=== PATIENT | female | born 1960 | race Caucasian/White ===

== ENCOUNTER 2017-07-30 15:30 | Inpatient (IN) | payer BC, MEDICAID ==
[~2017-07-30] VITALS: Ht 157.5 cm; Wt 79.8 kg
[2017-07-30 15:40] VITALS: BP 132/69
[2017-07-30] MEDS ORDERED: DOCUSATE SODIUM 283 MG/5 ML MINI-ENEMA PR PRN (15:45)
[2017-07-30] MEDS ORDERED: ALBUTEROL SULFATE 2.5 MG/0.5 ML NEB SOLUTION NEB PRN (16:00)
[2017-07-30] MEDS ORDERED: DiphenhydrAMINE HCL 25 MG CAPSULE PO PRN (16:00)
[2017-07-30] MEDS ORDERED: IPRATROPIUM BROMIDE 0.5 MG/2.5 ML NEB SOLUTION NEB PRN (16:00)
[2017-07-30] MEDS ORDERED: AQUAPHOR OINTMENT 50 GM TUBE TP PRN (16:00)
[2017-07-30] MEDS ORDERED: DiphenhydrAMINE HCL 25 MG/10 ML ELIXIR UDCUP PO PRN (17:05)
[2017-07-30] MEDS: HYDROCODONE/ACETAMINOPHEN 5-325 MG TABLET PO PRN (17:10)
[2017-07-30] MEDS: BUTALBITAL/ACETAMINOPHEN/CAFFEINE 50-325-40 MG TABLET PO PRN (18:57)
[2017-07-30] MEDS: DOCUSATE SODIUM 100 MG CAPSULE PO SCH (20:06)
[2017-07-30] MEDS: FAMOTIDINE 20 MG TABLET PO SCH (20:06)
[2017-07-30] MEDS: ATORVASTATIN CALCIUM 10 MG TABLET PO SCH (20:06)
[2017-07-30] MEDS: SENNA 187 MG TABLET PO SCH (20:06)
[2017-07-30] MEDS: DICLOFENAC SODIUM 1% 100 GM GEL [4GM] TP SCH (21:26)
[2017-07-30] MEDS: ALPRAZolam 0.25 MG TABLET PO PRN (22:08)
[2017-07-31 00:05] VITALS: BP 117/68
[2017-07-31 02:48] LABS: APPEARANCE,URINE CLEAR (CLEAR); BILIRUBIN,URINE NEGATIVE (NEGATIVE); GLUCOSE, URINE (UA) NEGATIVE (NEGATIVE); KETONES,URINE NEGATIVE (NEGATIVE); LEUKOCYTE ESTERASE ,URINE NEGATIVE (NEGATIVE); NITRATE,URINE NEGATIVE (NEGATIVE); OCCULT BLOOD,URINE MODERATE (NEGATIVE); PROTEIN,URINE NEGATIVE (NEGATIVE); UROBILINOGEN,URINE 0.2 mg/dL (<=1.0)
[2017-07-31 03:41] LABS: BACTERIA,URINE None Seen /HPF (None Seen); SQUAMOUS EPITHELIAL CELL,UR Few /LPF (None Seen); WBC,URINE 0-2 /HPF (0-5)
[2017-07-31 07:30] VITALS: BP 115/57
[2017-07-31 07:56] LABS: BASOPHILS % (AUTO) 0.4 % (0.0-2.0); EOSINOPHILS % (AUTO) 5.5 % (1.0-6.0); HEMATOCRIT 34.8 % (36-46); LYMPHOCYTES # (AUTO) 1.1 K/uL (1.0-4.8); LYMPHOCYTES % (AUTO) 14.1 % (22.0-44.0); MEAN CORPUSCULAR HEMOGLOBIN 31.1 pg (26.0-34.0); MEAN CORPUSCULAR HGB CONC 34.4 G/dL (31.0-37.0); MEAN CORPUSCULAR VOLUME 90 fL (80-100); MONOCYTES # (AUTO) 0.7 K/uL (0.1-1.0); NEUTROPHILS # (AUTO) 5.5 K/uL (1.8-7.7); PLATELET COUNT (AUTO) 204 K/uL (150-450); RED BLOOD CELL COUNT(AUTO) 3.85 MIL/uL (4.00-5.20); RED CELL DISTRIBUTION WIDTH 13.9 % (11.5-14.5)
[2017-07-31 08:36] LABS: ALANINE AMINOTRANSFERASE 17 U/L (12-78); ALBUMIN 2.9 g/dL (3.4-5.0); ALKALINE PHOSPHATASE 64 U/L (46-116); ANION GAP 9 mmol/L (8-16); ASPARTATE AMINOTRANSFERASE 23 U/L (15-37); BILIRUBIN,TOTAL 0.7 mg/dL (0.1-1.0); CALCIUM, TOTAL 8.9 mg/dL (8.8-10.5); CARBON DIOXIDE 29 mmol/L (22-29); CHLORIDE 99 mmol/L (98-107); CREATININE 0.84 mg/dL (0.60-1.30); GLOMERULAR FILTR. RATE CALC > 60 mL/min (>60); GLUCOSE,RANDOM 105 mg/dL (70-110); POTASSIUM 3.4 mmol/L (3.5-5.1); SODIUM SERUM 137 mmol/L (136-145); TOTAL PROTEIN, SERUM 7.3 g/dL (6.4-8.2); UREA NITROGEN, BLOOD 9 mg/dL (7-18)
[2017-07-31] MEDS: FAMOTIDINE 20 MG TABLET PO SCH ×2 (09:18→20:31)
[2017-07-31] MEDS: VALSARTAN 80 MG TABLET PO SCH (09:18)
[2017-07-31] MEDS: AmLODIPine BESYLATE 5 MG TABLET PO SCH (09:18)
[2017-07-31] MEDS: ESCITALOPRAM OXALATE 10 MG TABLET PO SCH (09:18)
[2017-07-31] MEDS: DOCUSATE SODIUM 100 MG CAPSULE PO SCH ×2 (09:18→20:31)
[2017-07-31] MEDS: BUTALBITAL/ACETAMINOPHEN/CAFFEINE 50-325-40 MG TABLET PO PRN ×3 (09:19→19:26)
[2017-07-31] MEDS: DICLOFENAC SODIUM 1% 100 GM GEL [4GM] TP SCH ×3 (09:19→20:31)
[2017-07-31 09:31] VITALS: BP 142/79
[2017-07-31] MEDS: POTASSIUM CHLORIDE 20 MEQ ER TABLET PO SCH (13:49)
[2017-07-31 15:10] VITALS: BP 123/69
[2017-07-31] MEDS: ALPRAZolam 0.25 MG TABLET PO PRN (17:06)
[2017-07-31] MEDS: ATORVASTATIN CALCIUM 10 MG TABLET PO SCH (20:30)
[2017-07-31] MEDS: SENNA 187 MG TABLET PO SCH (20:31)
[2017-07-31] MEDS: HYDROCODONE/ACETAMINOPHEN 5-325 MG TABLET PO PRN (21:00)
[2017-08-01 05:30] VITALS: BP 129/67
[2017-08-01 07:10] VITALS: BP 118/61
[2017-08-01] MEDS: DOCUSATE SODIUM 100 MG CAPSULE PO SCH ×2 (08:25→20:57)
[2017-08-01] MEDS: POTASSIUM CHLORIDE 20 MEQ ER TABLET PO SCH (08:25)
[2017-08-01] MEDS: DICLOFENAC SODIUM 1% 100 GM GEL [4GM] TP SCH ×3 (08:26→20:57)
[2017-08-01] MEDS: VALSARTAN 80 MG TABLET PO SCH (08:26)
[2017-08-01] MEDS: FAMOTIDINE 20 MG TABLET PO SCH ×2 (08:26→20:57)
[2017-08-01] MEDS: AmLODIPine BESYLATE 5 MG TABLET PO SCH (08:26)
[2017-08-01] MEDS: ESCITALOPRAM OXALATE 10 MG TABLET PO SCH (08:28)
[2017-08-01] MEDS: BUTALBITAL/ACETAMINOPHEN/CAFFEINE 50-325-40 MG TABLET PO PRN ×2 (11:37→16:55)
[2017-08-01 16:09] VITALS: BP 122/65
[2017-08-01] MEDS: ATORVASTATIN CALCIUM 10 MG TABLET PO SCH (20:56)
[2017-08-01] MEDS: HYDROCODONE/ACETAMINOPHEN 5-325 MG TABLET PO PRN (20:57)
[2017-08-01] MEDS: ALPRAZolam 0.25 MG TABLET PO PRN (20:57)
[2017-08-01] MEDS: SENNA 187 MG TABLET PO SCH (20:57)
[2017-08-02 00:19] VITALS: BP 118/59
[2017-08-02] MEDS: TraMADol HCL 50 MG TABLET PO PRN (02:27)
[2017-08-02 08:07] VITALS: BP 109/47
[2017-08-02 08:36] VITALS: BP 122/62
[2017-08-02] MEDS: DICLOFENAC SODIUM 1% 100 GM GEL [4GM] TP SCH ×3 (08:39→20:38)
[2017-08-02] MEDS: ESCITALOPRAM OXALATE 10 MG TABLET PO SCH (08:41)
[2017-08-02] MEDS: FAMOTIDINE 20 MG TABLET PO SCH ×2 (08:42→20:38)
[2017-08-02] MEDS: BUTALBITAL/ACETAMINOPHEN/CAFFEINE 50-325-40 MG TABLET PO PRN ×2 (08:42→15:31)
[2017-08-02] MEDS: DOCUSATE SODIUM 100 MG CAPSULE PO SCH ×2 (08:42→20:38)
[2017-08-02] MEDS: AmLODIPine BESYLATE 5 MG TABLET PO SCH (08:44)
[2017-08-02] MEDS: VALSARTAN 80 MG TABLET PO SCH (08:44)
[2017-08-02 15:25] VITALS: BP 126/58
[2017-08-02] MEDS: ATORVASTATIN CALCIUM 10 MG TABLET PO SCH (20:38)
[2017-08-02] MEDS: SENNA 187 MG TABLET PO SCH (20:38)
[2017-08-02] MEDS: ALPRAZolam 0.25 MG TABLET PO PRN (20:38)
[2017-08-03] VITALS: BP 136/59
[2017-08-03] MEDS: HYDROCODONE/ACETAMINOPHEN 5-325 MG TABLET PO PRN ×2 (01:41→08:20)
[2017-08-03] MEDS ORDERED: ATOR10TA84 PO (07:13)
[2017-08-03] MEDS ORDERED: ALPR0.5T8 PO (07:13)
[2017-08-03] MEDS ORDERED: IPRA4AER IH (07:13)
[2017-08-03] MEDS ORDERED: NICO-703 TD (07:13)
[2017-08-03] MEDS ORDERED: PANT40TA25 PO (07:13)
[2017-08-03] MEDS ORDERED: HYDR-309 PO (07:13)
[2017-08-03] MEDS ORDERED: APIX5TAB PO (07:13)
[2017-08-03] MEDS ORDERED: ASPI-891 PO (07:13)
[2017-08-03] MEDS ORDERED: AZIT250T9 PO (07:13)
[2017-08-03] MEDS: BUTALBITAL/ACETAMINOPHEN/CAFFEINE 50-325-40 MG TABLET PO PRN (07:37)
[2017-08-03] MEDS: FAMOTIDINE 20 MG TABLET PO SCH ×2 (08:20→20:39)
[2017-08-03] MEDS: AmLODIPine BESYLATE 5 MG TABLET PO SCH (08:21)
[2017-08-03] MEDS: DOCUSATE SODIUM 100 MG CAPSULE PO SCH ×2 (08:21→20:39)
[2017-08-03] MEDS: VALSARTAN 80 MG TABLET PO SCH (08:22)
[2017-08-03] MEDS: DICLOFENAC SODIUM 1% 100 GM GEL [4GM] TP SCH ×3 (08:22→20:39)
[2017-08-03] MEDS: ESCITALOPRAM OXALATE 10 MG TABLET PO SCH (08:22)
[2017-08-03 15:49] VITALS: BP 115/57
[2017-08-03] MEDS: TraMADol HCL 50 MG TABLET PO PRN (15:52)
[2017-08-03] MEDS: ATORVASTATIN CALCIUM 10 MG TABLET PO SCH (20:39)
[2017-08-03] MEDS: SENNA 187 MG TABLET PO SCH (20:39)
[2017-08-03 23:23] VITALS: BP 127/66
[2017-08-03] MEDS: ACETAMINOPHEN 325 MG TABLET PO PRN (23:23)
[2017-08-04] MEDS: TraMADol HCL 50 MG TABLET PO PRN ×3 (04:09→20:57)
[2017-08-04 07:27] VITALS: BP 107/61
[2017-08-04] MEDS: AmLODIPine BESYLATE 5 MG TABLET PO SCH (08:43)
[2017-08-04] MEDS: VALSARTAN 80 MG TABLET PO SCH (08:43)
[2017-08-04] MEDS: ESCITALOPRAM OXALATE 10 MG TABLET PO SCH (08:43)
[2017-08-04] MEDS: FAMOTIDINE 20 MG TABLET PO SCH ×2 (08:43→20:11)
[2017-08-04] MEDS: DOCUSATE SODIUM 100 MG CAPSULE PO SCH ×2 (08:44→20:10)
[2017-08-04] MEDS: DICLOFENAC SODIUM 1% 100 GM GEL [4GM] TP SCH ×3 (08:44→20:11)
[2017-08-04] MEDS: ALPRAZolam 0.25 MG TABLET PO PRN ×2 (12:35→20:57)
[2017-08-04 15:20] VITALS: BP 120/57
[2017-08-04] MEDS: ATORVASTATIN CALCIUM 10 MG TABLET PO SCH (20:10)
[2017-08-04] MEDS: SENNA 187 MG TABLET PO SCH (20:11)
[2017-08-05 00:45] VITALS: BP 117/83
[2017-08-05 07:28] VITALS: BP 115/69
[2017-08-05] MEDS: DOCUSATE SODIUM 100 MG CAPSULE PO SCH ×2 (08:42→20:43)
[2017-08-05] MEDS: FAMOTIDINE 20 MG TABLET PO SCH ×2 (08:42→20:43)
[2017-08-05] MEDS: AmLODIPine BESYLATE 5 MG TABLET PO SCH (08:42)
[2017-08-05] MEDS: DICLOFENAC SODIUM 1% 100 GM GEL [4GM] TP SCH ×3 (08:42→20:43)
[2017-08-05] MEDS: ESCITALOPRAM OXALATE 10 MG TABLET PO SCH (08:42)
[2017-08-05] MEDS: VALSARTAN 80 MG TABLET PO SCH (08:43)
[2017-08-05] MEDS: TraMADol HCL 50 MG TABLET PO PRN ×2 (10:34→20:48)
[2017-08-05 15:15] VITALS: BP 130/69
[2017-08-05] MEDS: HALOPERIDOL 5 MG TABLET PO PRN (18:26)
[2017-08-05] MEDS: SENNA 187 MG TABLET PO SCH (20:43)
[2017-08-05] MEDS: ATORVASTATIN CALCIUM 10 MG TABLET PO SCH (20:43)
[2017-08-05 23:55] VITALS: BP 127/70
[2017-08-06] MEDS: HYDROCODONE/ACETAMINOPHEN 5-325 MG TABLET PO PRN ×2 (02:24→20:29)
[2017-08-06 08:36] VITALS: BP 134/69
[2017-08-06] MEDS: ESCITALOPRAM OXALATE 10 MG TABLET PO SCH (08:38)
[2017-08-06] MEDS: AmLODIPine BESYLATE 5 MG TABLET PO SCH (08:38)
[2017-08-06] MEDS: DICLOFENAC SODIUM 1% 100 GM GEL [4GM] TP SCH ×3 (08:38→20:30)
[2017-08-06] MEDS: DOCUSATE SODIUM 100 MG CAPSULE PO SCH (08:38)
[2017-08-06] MEDS: FAMOTIDINE 20 MG TABLET PO SCH ×2 (08:38→20:29)
[2017-08-06] MEDS: TraMADol HCL 50 MG TABLET PO PRN (08:38)
[2017-08-06] MEDS: VALSARTAN 80 MG TABLET PO SCH (08:38)
[2017-08-06 11:09] LABS: C.DIFF GDH ANTIGEN, Stool Negative (Negative); C.DIFF TOXINS A&B, Stool Negative (Negative)
[2017-08-06 16:14] VITALS: BP 134/75
[2017-08-06] MEDS: ALPRAZolam 0.25 MG TABLET PO PRN (20:29)
[2017-08-06] MEDS: ATORVASTATIN CALCIUM 10 MG TABLET PO SCH (20:29)
[2017-08-06] MEDS: SENNA 187 MG TABLET PO SCH (20:29)
[2017-08-07 05:44] VITALS: BP 97/68
[2017-08-07] MEDS: HYDROCODONE/ACETAMINOPHEN 5-325 MG TABLET PO PRN ×2 (05:44→20:32)
[2017-08-07 09:00] VITALS: BP 117/59
[2017-08-07] MEDS: VALSARTAN 80 MG TABLET PO SCH (09:05)
[2017-08-07] MEDS: ACETAMINOPHEN 325 MG TABLET PO PRN ×2 (09:05→13:32)
[2017-08-07] MEDS: FAMOTIDINE 20 MG TABLET PO SCH ×2 (09:05→20:32)
[2017-08-07] MEDS: DICLOFENAC SODIUM 1% 100 GM GEL [4GM] TP SCH ×3 (09:05→20:32)
[2017-08-07] MEDS: AmLODIPine BESYLATE 5 MG TABLET PO SCH (09:05)
[2017-08-07 17:04] VITALS: BP 122/57
[2017-08-07] MEDS: ALPRAZolam 0.25 MG TABLET PO PRN (20:31)
[2017-08-07] MEDS: ATORVASTATIN CALCIUM 10 MG TABLET PO SCH (20:32)
[2017-08-07] MEDS: SENNA 187 MG TABLET PO SCH (20:32)
[2017-08-08] MEDS: HALOPERIDOL 5 MG TABLET PO PRN (00:15)
[2017-08-08 00:45] VITALS: BP 120/68
[2017-08-08] MEDS: ACETAMINOPHEN 325 MG TABLET PO PRN ×2 (02:54→10:46)
[2017-08-08 04:30] VITALS: BP 107/56
[2017-08-08 07:51] VITALS: BP 111/60
[2017-08-08] MEDS: AmLODIPine BESYLATE 5 MG TABLET PO SCH (08:46)
[2017-08-08] MEDS: DICLOFENAC SODIUM 1% 100 GM GEL [4GM] TP SCH ×3 (08:46→20:47)
[2017-08-08] MEDS: FAMOTIDINE 20 MG TABLET PO SCH ×2 (08:46→20:47)
[2017-08-08] MEDS: VALSARTAN 80 MG TABLET PO SCH (08:46)
[2017-08-08 15:30] VITALS: BP 123/63
[2017-08-08] MEDS: SENNA 187 MG TABLET PO SCH (20:47)
[2017-08-08] MEDS: ATORVASTATIN CALCIUM 10 MG TABLET PO SCH (20:47)
[2017-08-08] MEDS: ALPRAZolam 0.25 MG TABLET PO PRN (20:49)
[2017-08-08] MEDS: HYDROCODONE/ACETAMINOPHEN 5-325 MG TABLET PO PRN (21:02)
[2017-08-09 02:40] VITALS: BP 115/64
[2017-08-09] MEDS: ACETAMINOPHEN 325 MG TABLET PO PRN ×3 (03:10→21:13)
[2017-08-09 07:54] VITALS: BP 110/60
[2017-08-09] MEDS: AmLODIPine BESYLATE 5 MG TABLET PO SCH (08:17)
[2017-08-09] MEDS: FAMOTIDINE 20 MG TABLET PO SCH ×2 (08:17→21:13)
[2017-08-09] MEDS: VALSARTAN 80 MG TABLET PO SCH (08:17)
[2017-08-09] MEDS: DICLOFENAC SODIUM 1% 100 GM GEL [4GM] TP SCH ×3 (08:18→21:13)
[2017-08-09 16:48] VITALS: BP 125/65
[2017-08-09] MEDS: ATORVASTATIN CALCIUM 10 MG TABLET PO SCH (21:12)
[2017-08-09] MEDS: SENNA 187 MG TABLET PO SCH (21:13)
[2017-08-09] MEDS: ALPRAZolam 0.25 MG TABLET PO PRN (22:22)
[2017-08-09 23:00] VITALS: BP 125/52
[2017-08-10] MEDS: HYDROCODONE/ACETAMINOPHEN 5-325 MG TABLET PO PRN ×2 (03:57→20:13)
[2017-08-10] MEDS: DICLOFENAC SODIUM 1% 100 GM GEL [4GM] TP SCH ×3 (08:09→20:13)
[2017-08-10] MEDS: AmLODIPine BESYLATE 5 MG TABLET PO SCH (08:09)
[2017-08-10] MEDS: FAMOTIDINE 20 MG TABLET PO SCH ×2 (08:09→20:13)
[2017-08-10] MEDS: DOCUSATE SODIUM 100 MG CAPSULE PO PRN (08:09)
[2017-08-10 08:10] VITALS: BP 107/87
[2017-08-10] MEDS: VALSARTAN 80 MG TABLET PO SCH (08:10)
[2017-08-10] MEDS: ACETAMINOPHEN 325 MG TABLET PO PRN ×3 (08:10→17:41)
[2017-08-10] MEDS ORDERED: FLUCONAZOLE 100 MG TABLET PO ONE (11:45)
[2017-08-10 15:30] VITALS: BP 115/61
[2017-08-10] MEDS: ATORVASTATIN CALCIUM 10 MG TABLET PO SCH (20:13)
[2017-08-10] MEDS: SENNA 187 MG TABLET PO SCH (20:13)
[2017-08-11 00:54] VITALS: BP 134/68
[2017-08-11] MEDS: HYDROCODONE/ACETAMINOPHEN 5-325 MG TABLET PO PRN ×4 (00:54→21:15)
[2017-08-11] MEDS: ALPRAZolam 0.25 MG TABLET PO PRN ×2 (00:54→20:16)
[2017-08-11 08:30] VITALS: BP 116/50
[2017-08-11] MEDS: DICLOFENAC SODIUM 1% 100 GM GEL [4GM] TP SCH ×3 (08:56→20:16)
[2017-08-11] MEDS: AmLODIPine BESYLATE 5 MG TABLET PO SCH (08:57)
[2017-08-11] MEDS: DOCUSATE SODIUM 100 MG CAPSULE PO PRN (08:57)
[2017-08-11] MEDS: FAMOTIDINE 20 MG TABLET PO SCH ×2 (08:57→20:16)
[2017-08-11] MEDS: VALSARTAN 80 MG TABLET PO SCH (08:57)
[2017-08-11 17:00] VITALS: BP 116/72
[2017-08-11] MEDS: BUTALBITAL/ACETAMINOPHEN/CAFFEINE 50-325-40 MG TABLET PO PRN (19:29)
[2017-08-11] MEDS: ATORVASTATIN CALCIUM 10 MG TABLET PO SCH (20:16)
[2017-08-11] MEDS: SENNA 187 MG TABLET PO SCH (20:16)
[2017-08-12 03:00] VITALS: BP 120/60
[2017-08-12] MEDS: ACETAMINOPHEN 325 MG TABLET PO PRN ×4 (03:21→17:27)
[2017-08-12] MEDS: ALPRAZolam 0.25 MG TABLET PO PRN (04:03)
[2017-08-12 07:10] VITALS: BP 117/61
[2017-08-12 08:02] VITALS: BP 117/61
[2017-08-12] MEDS ORDERED: DOCUSATE SODIUM 100 MG CAPSULE PO SCH (09:00)
[2017-08-12] MEDS: DICLOFENAC SODIUM 1% 100 GM GEL [4GM] TP SCH ×2 (11:24→17:27)
[2017-08-12] MEDS: AmLODIPine BESYLATE 5 MG TABLET PO SCH (11:24)
[2017-08-12] MEDS: FAMOTIDINE 20 MG TABLET PO SCH (11:24)
[2017-08-12] MEDS: VALSARTAN 80 MG TABLET PO SCH (11:24)
[2017-08-12 17:21] VITALS: BP 100/85
== END 2017-08-12 19:30 | disposition home or self-care (01) | DRG 56 ==
LOC: 2WR 15:30 → UNDOADMIN 15:39 → 2WR 08-11 07:35 → UNDODISIN 08-12 15:00
PROVIDERS: ADMIT Physical Medicine & Rehabilitation; ATTEND Physical Medicine & Rehabilitation
PROC: 5A09457 Assistance with Respiratory Ventilation, 24-96 Consecutive Hours, Continuous Positive Airway Pressure (ICD-10-PCS; principal; 2017-07-31)
DX: I69.354 Hemiplegia and hemiparesis following cerebral infarction affecting left non-dominant side (principal); I63.9 Cerebral infarction, unspecified; I61.4 Nontraumatic intracerebral hemorrhage in cerebellum; E44.0 Moderate protein-calorie malnutrition; F33.3 Major depressive disorder, recurrent, severe with psychotic symptoms; R13.10 Dysphagia, unspecified; N31.9 Neuromuscular dysfunction of bladder, unspecified; F23 Brief psychotic disorder; I10 Essential (primary) hypertension; G47.33 Obstructive sleep apnea (adult) (pediatric); F41.1 Generalized anxiety disorder; E87.6 Hypokalemia; E78.5 Hyperlipidemia, unspecified; E66.9 Obesity, unspecified; Z74.09 Other reduced mobility; N39.498 Other specified urinary incontinence; D64.9 Anemia, unspecified; R26.9 Unspecified abnormalities of gait and mobility; F41.9 Anxiety disorder, unspecified; Z91.041 Radiographic dye allergy status; Z91.018 Allergy to other foods; Z82.49 Family history of ischemic heart disease and other diseases of the circulatory system; Z87.891 Personal history of nicotine dependence; Z91.81 History of falling; Z79.82 Long term (current) use of aspirin; Z68.32 Body mass index [BMI] 32.0-32.9, adult
CPT/HCPCS: 84132; 87070; 87081; 87324; 87449; 92507; 92508; 92523; 93005; 93970; 94660; 94761; 97112; 97140; 97150; 97163; 97167; 97530; 97535; 99366

== ENCOUNTER 2017-09-06 13:28 | Emergency (ER) | payer BC, MEDICAID ==
[~2017-09-06] VITALS: Ht 165.1 cm; Wt 77.3 kg
[~2017-09-06 13:28] MED LIST: ALPR0.5T8 PO; APIX5TAB PO; ASPI-891 PO; ATOR10TA84 PO; AZIT250T9 PO; HYDR-309 PO; IPRA4AER IH; NICO-703 TD; PANT40TA25 PO
[2017-09-06] MEDS ORDERED: FIORC PO (14:52)
[2017-09-06] MEDS ORDERED: SENN-175 PO (14:52)
[2017-09-06] MEDS ORDERED: AMLO-511 PO (14:52)
[2017-09-06] MEDS ORDERED: FAMO20 PO (14:52)
[2017-09-06] MEDS ORDERED: DSS100 PO (14:52)
[2017-09-06] MEDS ORDERED: VALS80TA2 PO (14:52)
[2017-09-06] MEDS ORDERED: LORA0.5T2 PO (14:52)
[2017-09-06 15:29] LABS: BASOPHILS % (AUTO) 1.3 % (0.0-2.0); EOSINOPHILS % (AUTO) 3.2 % (1.0-6.0); HEMATOCRIT 34.6 % (36-46); HEMOGLOBIN 11.5 g/dL (12.0-16.0); LYMPHOCYTES # (AUTO) 1.2 K/uL (1.0-4.8); LYMPHOCYTES % (AUTO) 13.9 % (22.0-44.0); MEAN CORPUSCULAR HEMOGLOBIN 29.4 pg (26.0-34.0); MEAN CORPUSCULAR HGB CONC 33.4 G/dL (31.0-37.0); MEAN CORPUSCULAR VOLUME 88 fL (80-100); MONOCYTES # (AUTO) 0.8 K/uL (0.1-1.0); MONOCYTES % (AUTO) 9.4 % (2.0-9.0); NEUTROPHILS # (AUTO) 6.3 K/uL (1.8-7.7); NEUTROPHILS % (AUTO) 72.2 % (40.0-70.0); PLATELET COUNT (AUTO) 472 K/uL (150-450); RED BLOOD CELL COUNT(AUTO) 3.93 MIL/uL (4.00-5.20); RED CELL DISTRIBUTION WIDTH 14.2 % (11.5-14.5)
[2017-09-06 15:41] LABS: ANION GAP 10 mmol/L (8-16); CALCIUM, TOTAL 9.3 mg/dL (8.8-10.5); CARBON DIOXIDE 29 mmol/L (22-29); CHLORIDE 100 mmol/L (98-107); CREATININE 0.87 mg/dL (0.60-1.30); GLOMERULAR FILTR. RATE CALC > 60 mL/min (>60); GLUCOSE,RANDOM 106 mg/dL (70-110); POTASSIUM 4.4 mmol/L (3.5-5.1); SODIUM SERUM 139 mmol/L (136-145); UREA NITROGEN, BLOOD 27 mg/dL (7-18)
[2017-09-06 15:46] LABS: ALANINE AMINOTRANSFERASE 28 U/L (12-78); ALBUMIN 2.6 g/dL (3.4-5.0); ALKALINE PHOSPHATASE 78 U/L (46-116); ASPARTATE AMINOTRANSFERASE 29 U/L (15-37); BILIRUBIN,TOTAL 0.3 mg/dL (0.1-1.0); TOTAL PROTEIN, SERUM 7.6 g/dL (6.4-8.2)
[2017-09-06 17:56] VITALS: BP 137/68
== END 2017-09-06 19:01 | disposition home or self-care (01) ==
LOC: EMS 13:29
DX: I69.354 Hemiplegia and hemiparesis following cerebral infarction affecting left non-dominant side (principal); I10 Essential (primary) hypertension; E78.00 Pure hypercholesterolemia, unspecified; Z79.82 Long term (current) use of aspirin; Z91.018 Allergy to other foods; Z79.899 Other long term (current) drug therapy
CPT/HCPCS: 70450; 99285